=== PATIENT | male | born 1965 | race Caucasian/White ===

== ENCOUNTER → 2017-10-16 | Outpatient (CLI) | payer OTHER | END | disposition home or self-care (01) | LOC: PCVCIMAG 13:34 | DX: I65.23 Occlusion and stenosis of bilateral carotid arteries (principal); M54.2 Cervicalgia; R06.81 Apnea, not elsewhere classified; I25.10 Atherosclerotic heart disease of native coronary artery without angina pectoris; I10 Essential (primary) hypertension; E78.5 Hyperlipidemia, unspecified; Z95.1 Presence of aortocoronary bypass graft | CPT/HCPCS: 93325; 93351; 93880 ==